=== PATIENT | male | born 1995 | race Caucasian/White ===

== ENCOUNTER 2022-09-05 10:59 | Emergency (ER) | payer OTHER, SELFPAY ==
[2022-09-05 11:00] VITALS: BP 152/93; PULSE 113; RESP 18; TEMP 36.6; O2SAT 98; BMI 25.8
--- NOTE | 2022-09-05 12:05 | EX.ED.GENINJ ---
HPI History of Present Illness Chief Complaint: Trauma Detail of Chief Complaint: Injury to right ring finger Informant: patient Narrative Narrative: Patient presents with injury to right ring finger that occurred while he was using a manual wench. Apparently the wire got caught around his right ring finger. Patient try to stop the spinning handle with his left hand and injured his left hand as well. Patient has partial amputation of the ring finger. He is unsure of his last tetanus. Patient is right-hand dominant. PFSH PFSH Medical History no medical history Home Medications NK 09/05/22 [History Last Taken Unknown] Allergy/AdvReac Type Severity Reaction Status Date / Time No Known Allergies Allergy Unverified 10/14/21 17:09 Social History Smoking Status: Current every day smoker tobacco type: e-cigarettes ROS ROS ED Review of Systems ROS Unobtainable: other Constitutional Constitutional ED: Reports lethargy; Denies chills, fever(s), sweats or weight loss Eyes Eyes: Denies blurry vision, change in vision or diplopia ENT ENT ED: Denies rhinorrhea or sore throat Cardiovascular Cardiovascular: Denies chest pain, orthopnea or racing heartbeat Respiratory/Chest Respiratory/Chest: Denies cough, dyspnea, dyspnea on exertion, orthopnea or sputum Gastrointestinal Gastrointestinal: Denies abdominal pain, diarrhea, nausea or vomiting Genitourinary Genitourinary ED: Denies dysuria, hematuria or urinary frequency Musculoskeletal Musculoskeletal: Reports other Details: Right ring finger partial amputation/injury, left hand injury ; Denies arthralgias, back pain, myalgias or neck pain Integumentary Denies abscess, Abrasions or rash Neurologic Neurologic: Denies headache(s) or weakness Psychiatric Psychiatric: Denies anxiety, depression or suicidal thoughts Endocrine Endocrinology: Denies polydipsia, polyphagia or polyuria Hematologic/Lymphatic Hematologic/Lymphatic: Denies easy bleeding, easy bruising or lymphadenopathy Allergic/Immunologic Allergic/Immunologic ED: Denies mouth swelling, tongue swelling or urticaria EXAM Physical Exam Const Vital Signs: 09/05/22 11:00 09/05/22 12:16 09/05/22 12:25 Temperature 97.8 F Temperature Source Temporal Pulse Rate 113 H Respiratory Rate 18 16 Respiratory Effort Normal Non-Labored Respiratory Depth Normal Respiratory Pattern Normal Blood Pressure 152/93 H Blood Pressure Mean 112 Pulse Ox 98 Oxygen Delivery Method Room Air 09/05/22 13:08 Temperature Temperature Source Pulse Rate 83 Respiratory Rate 16 Respiratory Effort Respiratory Depth Respiratory Pattern Blood Pressure 139/92 H Blood Pressure Mean 107 Pulse Ox 97 Oxygen Delivery Method Room Air Positive well nourished and well developed General Appearance ED: well developed and NAD HEENT Reports TM's clear and moist mucous membranes normocephalic and atraumatic; Negative for trauma or tenderness Tympanic Membrane ED: Yes TM's clear Eyes PERRL and EOMs intact bilaterally General Eye ED: Negative for pale conjunctiva or scleral icterus Neck no lymphadenopathy, supple and no JVD General: Negative for tenderness Chest Wall inspection of chest normal and palpation of chest normal Chest: Negative for tenderness Resp normal respiratory effort and clear to auscultation bilaterally Effort and Inspection: Negative for respiratory distress or pain with movement Auscultation: Negative for rhonchi, wheezes or diminished lung sounds Cardio regular rate, regular rhythm, S1 normal heart sound, S2 normal heart sound and no murmurs Peripheral Pulses: pulses 2+ throughout GI normal to inspection, nondistended, normoactive bowel sounds, soft to palpation, non-tender, non-distended and no masses Back/Spine no CVA tenderness and no thoracic nor lumbar tenderness Extremity normal to inspection Extremity Narrative: Right hand-patient has partial amputation of the distal phalanx of the ring finger on the right hand. About 90% of the nail has been avulsed. There is soft tissue exposure although I do not palpate any obvious bone protruding from the soft tissue. There is persistent oozing of blood from the wound. Patient also with some mild discomfort over the distal phalanx of the small finger. Left hand-patient has diffuse tenderness over the index finger and middle finger with some soft tissue swelling noted. He is neurovascularly intact. General Extremety ED: Negative for edema General Extremity: Negative for edema Neuro oriented x3, CN's II-XII intact bilaterally, no sensory deficits noted and gait normal Sensorium / Orientation: awake, alert, oriented to person, oriented to place and oriented to time Motor Exam: strength 5/5 throughout and strength abnormal Psych mental status grossly normal Skin no rashes or lesions noted and no wounds PROC Procedures Other Procedures Procedure(s): Patient had a digital block performed of the right ring finger and his wound was sterilely draped and prepped. He wound was cleansed with Shur-Clens and irrigated with copious saline. I did use sterile rubber bands obtain good hemostasis. I am able to palpate bony fragments within the macerated soft tissues as he has lost his fingernail as well as skin of the distal pulp of the digit. There is only some subcutaneous tissue but there is exposed bone and phalanx. Clean dressing was applied. MDM MDM MDM Narrative Medical decision making narrative: Patient received Ancef and was given a tetanus shot. He does have a open fracture and avulsion of the distal tip of the distal phalanx of the right ring finger. Patient case was discussed with hand surgeon at [facility] in [place] who accepted transfer to their facility as we do not have hand surgery available here [place] and I feel patient likely require revision of the digit. Patient will have x-ray sent with him. Dr. Feliciano Tovar accepted transfer. I also spoke with emergency room physician who will be expecting patient to their emergency department. Radiography Diagnostic Testing: Clinical Impression(s) from Imaging Studies Hand X-Ray 09/05/22 12:14 IMPRESSION: Comminuted nondisplaced fracture of the left of the fourth digit with overlying soft tissue swelling and laceration. Electronically Signed: Saleem Capellan MD at 13:22 EST , Hand X-Ray 09/05/22 12:25 IMPRESSION: Normal x-ray examination of the hand. Electronically Signed: Saleem Capellan MD at 13:21 EST , Three-view x-rays right hand obtained showed a fracture of the distal phalanx of the right ring finger on my interpretation. Radiology was in agreement. Three-view x-rays of the left hand obtained interpreted by myself as no acute fractures or dislocations. Radiology in agreement. Discharge Plan Triage Chief Complaint: Trauma ED Provider: Jose Rand Dx/Rx/DC Orders Clinical Impression: Partial traumatic amputation of right ring finger through phalanx Prescriptions: No Action NK Primary Care Provider: Diamond PhysicianNo Primary Referrals: Surya Harris DO [Med Staff - Roof Fitter] - Disposition Disposition: DC/Tx to Another Type of HCF
--- NOTE | 2022-09-05 12:14 | RAD_ITS ---
STUDY: X-RAY - RIGHT HAND REASON FOR EXAM: Male, 26 years old. Smashing injury. TECHNIQUE: 3 view(s) of the hand. COMPARISON: None. FINDINGS: Normal radiocarpal articulation. Normal distal radioulnar joint. Normal visualized carpal bones. Normal carpal articulations Normal carpometacarpal articulation of the thumb. Normal second through fifth carpometacarpal joints. Normal metacarpi. Normal metacarpophalangeal joint of the thumb. Normal interphalangeal joint of the thumb. Normal proximal and distal phalanges of the thumb. Normal metacarpophalangeal joints of the second through fifth fingers. Normal proximal and distal interphalangeal joints of the second through fifth fingers. Comminuted nondisplaced fracture of the tuft of the fourth digit with overlying soft tissue swelling and laceration. Soft tissue swelling and laceration overlying the fourth digit. RAD/Hand Min 3 Views IMPRESSION: Comminuted nondisplaced fracture of the left of the fourth digit with overlying soft tissue swelling and laceration. Electronically Signed: Saleem Capellan MD at 13:22 EST ,
[2022-09-05] MEDS: Lidocaine 1% (20 ml mdv) 20 ML Vial 8 ML INFILT (12:18)
[2022-09-05] MEDS: Diphth,Pertuss(Acell),Tet Vac 0.5 ML Vial IM (12:18)
[2022-09-05 12:25] VITALS: RESP 16
--- NOTE | 2022-09-05 12:25 | RAD_ITS ---
STUDY: X-RAY - LEFT HAND REASON FOR EXAM: Male, 26 years old. Smashing injury. TECHNIQUE: 3 view(s) of the hand. COMPARISON: None. FINDINGS: Normal radiocarpal articulation. Normal distal radioulnar joint. Normal visualized carpal bones. Normal carpal articulations Normal carpometacarpal articulation of the thumb. Normal second through fifth carpometacarpal joints. Normal metacarpi. Normal metacarpophalangeal joint of the thumb. Normal interphalangeal joint of the thumb. Normal proximal and distal phalanges of the thumb. Normal metacarpophalangeal joints of the second through fifth fingers. Normal proximal and distal interphalangeal joints of the second through fifth fingers. Normal phalanges of the second through fifth fingers. The soft tissue structures are unremarkable. RAD/Hand Min 3 Views IMPRESSION: Normal x-ray examination of the hand. Electronically Signed: Saleem Capellan MD at 13:21 [facility] ,
[2022-09-05] MEDS: Cefazolin 1 GM/50 ML BAG IV (12:54)
[2022-09-05 13:08] VITALS: BP 139/92; PULSE 83; RESP 16; O2SAT 97
--- NOTE | 2022-09-05 13:09 | ED.RN ---
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 BROOKE DID NOT ANSWER, BUT THIS RN LEFT A VOICE MESSAGE ASKING FOR RETURN PHONE CALL ASAP. [facility] PHONE NUMBER [phone]. PT GIVEN PERFECTO.
--- NOTE | 2022-09-05 13:35 | ED.RN ---
Employer calls and state they are not requesting a drug screen
--- NOTE | 2022-09-05 13:36 | ED.RN ---
[employer] employee portion completed by this nurse for patient due to hand trauma to dominant hand
[2022-09-05 14:04] VITALS: BP 137/75; PULSE 88; RESP 17; O2SAT 98; O2SAT 99
--- NOTE | 2022-09-05 14:13 | CCN.REFER ---
number on transfer paper is the office for surgeon. They are closed when call. [facility] and asked for surgery coordinator to see who I can call report to. [phone].
--- NOTE | 2022-09-05 14:29 | ED.RN ---
ER charge reports they did not accepted the patient and they will call around to the floors to see where the patient is going and call back [facility] that info to be able to give report
--- NOTE | 2022-09-05 14:45 | ED.RN ---
[facility] er is on diversion for ems and they are sendign housekeeping/laundry supervisor to floor to determine where to send this patient - still waiting on ride. Dressing applied and ice given to patient for left hand swelling from incident
--- NOTE | 2022-09-05 14:54 | ED.RN ---
welder operator at ER calls back to report they have 8 boarders and are diverting and [place] thought it was going to go to the floor and not er to er and Dr Tovar and Dr Rand took it as ER to ER. They checked with the floors and talked to local coordinator and supervisor [employer] and there are not bed for this patient so they can only take him as a wait bed but they do not know when that will open for patient. Dr Rand and patient aware. [facility] is next request in the works for this patient.
[2022-09-05] MEDS: HYDROcodone Bitartrate/Apap 5/325 Tablet PO (15:12)
[2022-09-05 15:15] VITALS: O2SAT 98
== END 2022-09-05 15:37 | disposition short-term general hospital (02) ==
PROVIDERS: Emergency Provider Emergency Medicine; Visit Provider Emergency Medicine
DX: S68.124A Partial traumatic metacarpophalangeal amputation of right ring finger, initial encounter (principal); F17.290 Nicotine dependence, other tobacco product, uncomplicated; W23.0XXA Caught, crushed, jammed, or pinched between moving objects, initial encounter; Z23 Encounter for immunization
CPT/HCPCS: 73130; 90715; 96365; 99285; J7050; A4216